=== PATIENT | male | born 1995 | race Caucasian/White ===

== ENCOUNTER 2017-12-06 21:33 | Emergency (ER) | payer BC ==
--- NOTE | 2017-12-06 21:54 | ERPHSYRPT ---
- History of Present Illness Time Seen by Provider: 12/06/17 21:49 Source: patient Exam Limitations: no limitations Physician History: right shoulder appears anterior dislocation clinically - will x-ray- no other c/u injury - full ROM all other ext and chest abd clear and nontender; prior dislocation left shoudler with baseball and required surgery- Occurred: just prior to arrival Method of Injury: fell, sports injury Quality: constant, sharpness, throbbing Severity of Pain-Max: moderate Severity of Pain-Current: moderate Extremities Pain Location: shoulder: right Modifying Factors: Improves With: cold therapy, immobilization, movement, pain medication Associated Symptoms: none Allergies/Adverse Reactions: No Known Drug Allergies Allergy (Unverified 12/06/17 21:50) - Review of Systems Constitutional: No Fever, No Chills Eyes: No Symptoms Ears, Nose, & Throat: No Symptoms Respiratory: No Cough, No Dyspnea Cardiac: No Chest Pain, No Edema, No Syncope Abdominal/Gastrointestinal: No Abdominal Pain, No Nausea, No Vomiting, No Diarrhea Genitourinary Symptoms: No Dysuria Musculoskeletal: Fall, Injury, Joint Pain, Other (dislocation right shoulder), No Back Pain, No Neck Pain Skin: No Rash Neurological: No Dizziness, No Focal Weakness, No Sensory Changes Psychological: No Symptoms Endocrine: No Symptoms All Other Systems: Reviewed and Negative - Past Medical History Pertinent Past Medical History: Yes Musculoskeletal History: Other (left shoudler dislocation prior) - Past Surgical History Past Surgical History: Yes (left labrum repair) - Nursing Vital Signs Nursing Vital Signs: Initial Vital Signs Temperature 98.1 F 12/06/17 21:43 Pulse Rate 75 12/06/17 21:43 Respiratory Rate 16 12/06/17 21:43 Blood Pressure 137/88 12/06/17 21:43 O2 Sat by Pulse Oximetry 100 12/06/17 21:43 Pain Scale Pain Intensity 0 - Physical Exam General Appearance: alert Eyes, Ears, Nose, Throat Exam: moist mucous membranes Neck Exam: non-tender, supple Cardiovascular/Respiratory Exam: chest non-tender, normal breath sounds, regular rate/rhythm, no respiratory distress Abdominal Exam: non-tender, No guarding Back Exam: normal inspection, normal range of motion, No vertebral tenderness Shoulder Exam: limited ROM, pain, soft tissue tenderness, swelling Elbow/Forearm Exam: normal inspection, non-tender, no evidence of injury, normal ROM Wrist Exam: normal inspection, non-tender, no evidence of injury, normal ROM Hand Exam: normal inspection, non-tender, no evidence of injury, normal ROM DTR - Upper Extremity Exam: bicep (R): 2+, bicep (L): 2+, tricep (R): 2+, tricep (L): 2+ Neuro/Tendon Exam: normal sensation, normal motor functions, normal tendon functions, no evidence tendon injury Mental Status Exam: alert, oriented x 3, cooperative Skin Exam: normal color, warm, dry Procedures - Joint Reduction Timeout: Performed Joint Reduction Site: Right, shoulder Conscious Sedation: Yes Reduction Attempts: 1 Pre-Procedure Neurovascular Exam: neurovascular intact, well perfused, no neuro deficit Post Procedure Neurovascular Exam: neurovascular intact, unchanged from pre-exam Post Joint Reduction Film: some indentation on the pre-reduction at humeral head is also still seen - Course Nursing assessment & vital signs reviewed: Yes - Radiology Exams Right Shoulder X-ray Interpretation: Reviewed by me, Teleradiologist Report, No Fracture, Other (right anterior dislocation and reduction) Ordered Tests: Active Orders 24 hr Category Date Time Status IV Insertion STAT Care 12/06/17 23:05 Active SHOULDER Stat Exams 12/06/17 21:54 Taken SHOULDER Stat Exams 12/06/17 23:02 Ordered Medication Summary Generic Name Dose Route Start Last Admin Trade Name Freq PRN Reason Stop Dose Admin Sodium Chloride 1,000 mls @ 100 mls/hr 12/06/17 22:00 12/06/17 22:04 Sodium Chloride 0.9% 1000 Ml IV 01/05/18 21:59 100 mls/hr .Q10H GONZALO Administration Discontinued Medications Generic Name Dose Route Start Last Admin Trade Name Freq PRN Reason Stop Dose Admin Fentanyl Citrate 100 mcg 12/06/17 21:55 12/06/17 22:04 Sublimaze 100 Mcg/2 Ml IV 12/06/17 21:56 100 mcg STAT ONE Administration Fentanyl Citrate Confirm 12/06/17 21:58 Sublimaze 100 Mcg/2 Ml Administered 12/06/17 21:59 Dose 100 mcg .ROUTE .STK-MED ONE Midazolam HCl Confirm 12/06/17 22:43 Versed 5 Mg/5 Ml Administered 12/06/17 22:44 Dose 5 mg .ROUTE .STK-MED ONE Ondansetron HCl 4 mg 12/06/17 21:55 12/06/17 22:04 Zofran 4 Mg/2 Ml Vial IV 12/06/17 21:56 4 mg STAT ONE Administration Ondansetron HCl Confirm 12/06/17 21:58 Zofran 4 Mg/2 Ml Vial Administered 12/06/17 21:59 Dose 4 mg .ROUTE .STK-MED ONE - Progress Progress: improved, re-examined Progress Note: 12/06/17 23:14 shoulder contour has returned to normal after reduction attempt with traction followed by countertraction and int/ rotation with gentle pressure on subluxed humeral head and pt state feels normal again and has good ROm , distal pulses and neuro intact; Counseled pt/family regarding: diagnosis, need for follow-up, rad results - Departure Time of Disposition: 23:16 Departure Disposition: Home Clinical Impression: Anterior shoulder dislocation Condition: Good Critical Care Time: Yes Critical Care Time(excluding separately billable procedures): ___ minutes (15 minutes) Referrals: DOCTOR,NO FAMILY [Primary Care Provider] - Instructions: Shoulder Sprain, Shoulder Dislocation (DC), Shoulder Labral Tear (DC), Shoulder Sprain (DC), Shoulder Instability (DC), Shoulder Fracture (DC) Additional Instructions: followup with an orhtopedic doctor for re-exam and further evaluation as ligament and labrum injury and possible chip fracture is very likely after dislocation; use sling and immobilizer, return meantime if any concerns; Prescriptions: Hydrocodone/Acetaminophen [Mouthcard 5-325 Tablet] 1 each PO Q4-6HPRN PRN #10 tablet MDD 6 tabs PRN Reason: Pain
[2017-12-06] MEDS ORDERED: Zofran 4 MG/2 ML VIAL IV ONE (21:55)
[2017-12-06] MEDS ORDERED: SUBLIMAZE 100 MCG/2 ML IV ONE (21:55)
[2017-12-06] MEDS ORDERED: Zofran 4 MG/2 ML VIAL ONE (21:58)
[2017-12-06] MEDS ORDERED: Sodium Chloride 0.9% 1000 ML 1,000 ML ONE (21:58)
[2017-12-06] MEDS ORDERED: SUBLIMAZE 100 MCG/2 ML ONE (21:58)
[2017-12-06] MEDS ORDERED: Sodium Chloride 0.9% 1000 ML 1,000 ML IV SCH (22:00)
[2017-12-06] MEDS ORDERED: VERSED 5 MG/5 ML ONE (22:43)
[2017-12-07 00:52] VITALS: BP 153/91; PULSE 71; O2SAT 99
--- NOTE | 2017-12-07 09:51 | XRAY ---
Indication: Pain following rodeo injury. Comparison: None 3 views of the right shoulder demonstrates anterior inferior humeral head dislocation. No other bony, articular, or soft tissue abnormalities. Comment: Preliminary interpretation was made by [facility]. No discrepancy.
--- NOTE | 2017-12-07 09:53 | XRAY ---
Indication: Post reduction. Comparison: Taken earlier in the day. 3 views of the right shoulder demonstrates successful reduction of previous humeral head dislocation. No other bony, articular, or soft tissue abnormalities. Comment: Preliminary interpretation was made by [facility]. No discrepancy.
== END 2017-12-07 00:53 | disposition home or self-care (01) ==
LOC: ED 21:33
PROC: 0RSJXZZ Reposition Right Shoulder Joint, External Approach (ICD-10-PCS; principal; 2017-12-06)
DX: S43.004A Unspecified dislocation of right shoulder joint, initial encounter (principal)
CPT/HCPCS: 23650; 36000; 73030; 94770; 94799; 96360; 96361; 96374; 96375; 99284; J2250; J2405; J3010